=== PATIENT | female | born 1990 | race Caucasian/White ===

== ENCOUNTER 2018-08-12 22:52 | Outpatient (CLI) | payer OTHER ==
[~2018-08-12] VITALS: Ht 165.1 cm; Wt 70.5 kg
[2018-08-12 23:10] VITALS: BP 122/85; PULSE 74; TEMP 97.9
[2018-08-12 23:16] VITALS: BP 122/85; PULSE 74; TEMP 97.9
== END 2018-08-13 01:20 | disposition home or self-care (01) ==
LOC: LDRO 22:52
DX: O62.9 Abnormality of forces of labor, unspecified (principal); Z3A.37 37 weeks gestation of pregnancy

== ENCOUNTER 2018-08-16 19:56 | Outpatient (CLI) | payer OTHER ==
[~2018-08-16] VITALS: Ht 165.1 cm; Wt 70.0 kg
[2018-08-16 20:23] VITALS: BP 115/76; PULSE 75; TEMP 98
[2018-08-16 21:25] VITALS: BP 120/82; PULSE 76
== END 2018-08-16 21:35 | disposition home or self-care (01) ==
LOC: LDRO 19:56
DX: O62.9 Abnormality of forces of labor, unspecified (principal); Z3A.38 38 weeks gestation of pregnancy

== ENCOUNTER 2018-08-24 07:09 | Inpatient (IN) | payer OTHER ==
[2018-08-24] VITALS (30 sets, daily range): BP systolic 111–143; BP diastolic 60–92; PULSE 57–81; TEMP 97.2–98.2
[~2018-08-24] VITALS: Ht 165.1 cm; Wt 70.0 kg
[2018-08-24] MEDS ORDERED: TYLENOL 325MG325 MG PO (07:33)
[2018-08-24] MEDS ORDERED: ZANTAC 7575 MG PO (07:33)
[2018-08-24 09:03] LABS: BASO % 0.3 % (0.0-2.0); EOS # 0.1 (0.0-0.7); EOS % 1.5 % (0-4.0); GRAN # 3.7 (1.4-6.5); GRAN % 55.4 % (42.2-75.2); HEMOGLOBIN 11.5 g/dl (12.5-16.0); MEAN CELL VOLUME 87 fl (80.0-100.0); MEAN CORPUSCULAR HEMOGLOBIN 29 pg (27.0-31.0); MEAN CORPUSCULAR HGB CONC 34 g/dl (33.0-37.0); MONO # 0.7 (0.1-0.6); MONO % 11.2 % (1.7-9.3); PLATELET COUNT 186 K/mm3 (130-400); RED BLOOD COUNT 3.93 M/mm3 (4.10-5.30); REDCELL DISTRIBUTION WIDTH-CV 13.2 % (11.5-14.5)
[2018-08-24] MEDS ORDERED: MOTRIN 800800 MG/TAB PO (09:04)
[2018-08-24 09:05] LABS: HEMATOCRIT 34.3 % (37.0-47.0)
[2018-08-25] VITALS: BP 112/73; PULSE 72; TEMP 97.7
[2018-08-25 04:30] VITALS: BP 108/64; PULSE 72; TEMP 97.9
[2018-08-25 07:00] VITALS: BP 102/64; PULSE 68; TEMP 98.1
== END 2018-08-25 14:51 | disposition home or self-care (01) | DRG 807 ==
LOC: OB 07:09 → LDR 07:09 → OB 15:15
PROVIDERS: Obstetrics & Gynecology
PROC: 10E0XZZ Delivery of Products of Conception, External Approach (ICD-10-PCS; principal; 2018-08-24)
PROC: 0KQM0ZZ Repair Perineum Muscle, Open Approach (ICD-10-PCS; 2018-08-24)
PROC: 3E033VJ Introduction of Other Hormone into Peripheral Vein, Percutaneous Approach (ICD-10-PCS; 2018-08-24)
PROC: 10907ZC Drainage of Amniotic Fluid, Therapeutic from Products of Conception, Via Natural or Artificial Opening (ICD-10-PCS; 2018-08-24)
PROC: 0UQMXZZ Repair Vulva, External Approach (ICD-10-PCS; 2018-08-24)
DX: O71.82 Other specified trauma to perineum and vulva (principal); Z37.0 Single live birth; Z3A.39 39 weeks gestation of pregnancy; O69.81X0 Labor and delivery complicated by cord around neck, without compression, not applicable or unspecified; O75.89 Other specified complications of labor and delivery; K21.9 Gastro-esophageal reflux disease without esophagitis; O70.1 Second degree perineal laceration during delivery
CPT/HCPCS: J0690; J2210; J2590; J2795; J7120